=== PATIENT | male | born 1950 | race Caucasian/White ===

== ENCOUNTER 2022-05-12 11:24 | Emergency (ER) | payer MEDICARE, OTHER ==
--- NOTE | 2022-05-12 11:30 | ED General ---
General Chief Complaint: Medical Screening Exam Stated Complaint: DEHYDRATION Source of Information: Patient Exam Limitations: No Limitations History of Present Illness Date Seen by Provider: May 12, 2022 Time Seen by Provider: 11:20 Initial Comments 71-year-old man presents from home via EMS. He was reportedly in his home when the lady who comes to clean for him on Tuesdays came over. She reportedly found the patient in a chair and his was in the home as well but was . It is unclear exactly when his however his neighbor who helps him felt that he could not take care of himself anymore. She called the police and paramedics. On their arrival police stated that they could put him in protective custody or they can take him to the hospital for "emergency mcc placement." On arrival the patient has no specific complaints. He is unable to provide any past medical surgical or social history. He states he does not know what happened to his . He denies any fevers chills nausea vomiting. Chest pain cough abdominal pain, change in bowel or bladder habits. He does endorse left shoulder pain which he b states is chronic. he does tell me he is typically ambulatory with a walker. Allergies and Home Medications Allergies Coded Allergies: codeine (Verified Allergy, Unknown, 05/12/22) lisinopril (Verified Allergy, Unknown, 05/12/22) morphine (Verified Allergy, Unknown, 05/12/22) Patient Home Medication List Home Medication List Reviewed: Yes Review of Systems Review of Systems Constitutional: no symptoms reported EENTM: no symptoms reported Respiratory: no symptoms reported Cardiovascular: no symptoms reported Gastrointestinal: no symptoms reported Genitourinary: no symptoms reported Musculoskeletal: joint pain Skin: no symptoms reported Psychiatric/Neurological: No Symptoms Reported Hematologic/Lymphatic: No Symptoms Reported Immunological/Allergic: no symptoms reported Past Aqusjjg-Meiyyd-Byhair Hx Past Medical History Surgery/Hospitalization HX: Unable to obtain social past medical, surgical or family history Physical Exam Vital Signs Vital Signs - First Documented 05/12/22 11:27 Temp 36.5 Pulse 62 Resp 16 B/P (MAP) 135/66 (89) Pulse Ox 96 O2 Delivery Room Air Capillary Refill : Height, Weight, BMI Height: '" Weight: lbs. oz. kg; BMI Method: General Appearance: No Apparent Distress, Cachetic HEENT: PERRL/EOMI, Normal ENT Inspection, Pharynx Normal Neck: Full Range of Motion, Normal Inspection, Non Tender, Supple Respiratory: Chest Non Tender, Lungs Clear, Normal Breath Sounds, No Accessory Muscle Use, No Respiratory Distress Cardiovascular: Regular Rate, Rhythm, No Murmur, Normal Peripheral Pulses Gastrointestinal: Normal Bowel Sounds, No Organomegaly, Non Tender, Soft Extremity: Normal Capillary Refill, Normal Inspection, Normal Range of Motion, Non Tender, No Calf Tenderness Neurologic/Psychiatric: Alert, Oriented x3, No Motor/Sensory Deficits, Normal Mood/Affect Skin: Normal Color, Warm/Dry Progress/Results/Core Measures Suspected Sepsis SIRS Temperature: Pulse: Respiratory Rate: Laboratory Tests 05/12/22 11:27: White Blood Count 9.3 Blood Pressure / Mean: Laboratory Tests 05/12/22 11:27: Creatinine 1.89H, Platelet Count 323, Total Bilirubin 0.2 Results/Orders Lab Results Laboratory Tests Test 05/12/22 11:27 Range/Units White Blood Count 9.3 4.3-11.0 10^3/uL Red Blood Count 3.85 L 4.30-5.52 10^6/uL Hemoglobin 11.6 L 13.3-17.7 g/dL Hematocrit 36 L 40-54 % Mean Corpuscular Volume 93 80-99 fL Mean Corpuscular Hemoglobin 30 25-34 pg Mean Corpuscular Hemoglobin Concent 33 32-36 g/dL Red Cell Distribution Width 15.2 H 10.0-14.5 % Platelet Count 323 130-400 10^3/uL Mean Platelet Volume 9.5 9.0-12.2 fL Immature Granulocyte % (Auto) 0 % Neutrophils (%) (Auto) 79 H 42-75 % Lymphocytes (%) (Auto) 11 L 12-44 % Monocytes (%) (Auto) 9 0-12 % Eosinophils (%) (Auto) 1 0-10 % Basophils (%) (Auto) 0 0-10 % Neutrophils # (Auto) 7.3 1.8-7.8 10^3/uL Lymphocytes # (Auto) 1.0 1.0-4.0 10^3/uL Monocytes # (Auto) 0.9 0.0-1.0 10^3/uL Eosinophils # (Auto) 0.1 0.0-0.3 10^3/uL Basophils # (Auto) 0.0 0.0-0.1 10^3/uL Immature Granulocyte # (Auto) 0.0 0.0-0.1 10^3/uL Sodium Level 139 135-145 MMOL/L Potassium Level 4.2 3.6-5.0 MMOL/L Chloride Level 105 98-107 MMOL/L Carbon Dioxide Level 23 21-32 MMOL/L Anion Gap 11 5-14 MMOL/L Blood Urea Nitrogen 47 H 7-18 MG/DL Creatinine 1.89 H 0.60-1.30 MG/DL Estimat Glomerular Filtration Rate 38 BUN/Creatinine Ratio 25 Glucose Level 145 H 70-105 MG/DL Calcium Level 9.3 8.5-10.1 MG/DL Corrected Calcium 9.5 8.5-10.1 MG/DL Total Bilirubin 0.2 0.1-1.0 MG/DL Aspartate Amino Transf (AST/SGOT) 11 5-34 U/L Alanine Aminotransferase (ALT/SGPT) 10 0-55 U/L Alkaline Phosphatase 112 40-136 U/L Total Protein 6.6 6.4-8.2 GM/DL Albumin 3.8 3.2-4.5 GM/DL My Orders Orders - FORREST FRAZIER DO Cbc With Automated Diff (05/12/22 11:26) Comprehensive Metabolic Panel (05/12/22 11:26) Lactated Ringers (Lr 1000 Ml Iv Solution (05/12/22 12:30) Vital Signs/I&O 05/12/22 11:27 Temp 36.5 Pulse 62 Resp 16 B/P (MAP) 135/66 (89) Pulse Ox 96 O2 Delivery Room Air Capillary Refill : Departure Communication (Admissions) Patient is hemodynamically stable. Mildly elevated BUN and creatinine, given IV fluids for this. His son has been working with the nursing facility locally. He has Medicare and [employer]. This does not qualify him financially for placement. Nursing facility reportedly tried to work with the son on finances to see if he would qualify and he hung up on them and would not call back thereafter. We called the son and advised that he did not have a reason to admit the patient medically and he states he will be up to pick him up later. The patient is hemodynamically stable no indication for admission at this time Impression Primary Impression: Encounter for medical screening examination Disposition: HOME, SELF-CARE Condition: Stable Departure-Patient Inst. Patient Instructions: NO INSTRUCTIONS GIVEN Add. Discharge Instructions: No emergent medical conditions are identified. Please try to get him qualified for Medicaid if you desire mcc placement. Return to the emergency department for any severe concerns. All discharge instructions reviewed with patient and/or family. Voiced understanding. FORREST FRAZIER DO May 12, 2022 11:30
[2022-05-12 11:44] LABS: BASOPHILS % (AUTO) 0 % (0-10); EOSINOPHILS # (AUTO) 0.1 10^3/uL (0.0-0.3); EOSINOPHILS % (AUTO) 1 % (0-10); HEMATOCRIT 36 % (40-54); HEMOGLOBIN 11.6 g/dL (13.3-17.7); LYMPHOCYTES % (AUTO) 11 % (12-44); MEAN CORPUSCULAR HEMOGLOBIN 30 pg (25-34); MEAN CORPUSCULAR HGB CONC 33 g/dL (32-36); MEAN CORPUSCULAR VOLUME 93 fL (80-99); MEAN PLATELET VOLUME 9.5 fL (9.0-12.2); MONOCYTES # (AUTO) 0.9 10^3/uL (0.0-1.0); MONOCYTES % (AUTO) 9 % (0-12); NEUTROPHILS # (AUTO) 7.3 10^3/uL (1.8-7.8); NEUTROPHILS % (AUTO) 79 % (42-75); PLATELET COUNT 323 10^3/uL (130-400); WHITE BLOOD COUNT 9.3 10^3/uL (4.3-11.0)
[2022-05-12 12:03] LABS: POTASSIUM 4.2 MMOL/L (3.6-5.0)
[2022-05-12 12:04] LABS: ALBUMIN 3.8 GM/DL (3.2-4.5); BILIRUBIN,TOTAL 0.2 MG/DL (0.1-1.0); CALCIUM 9.3 MG/DL (8.5-10.1); CREATININE SERUM 1.89 MG/DL (0.60-1.30); TOTAL PROTEIN 6.6 GM/DL (6.4-8.2)
[2022-05-12] MEDS ORDERED: LACTATED RINGERS 1,000 ML IV SCH (12:30)
[2022-05-12 14:38] VITALS: BP 135/66
== END 2022-05-12 15:45 | disposition home or self-care (01) ==
LOC: ER FS 11:26
DX: Z00.00 Encounter for general adult medical examination without abnormal findings (principal)
CPT/HCPCS: 36415; 80053; 85025

== ENCOUNTER 2022-05-15 16:48 | Emergency (ER) | payer MEDICARE, OTHER ==
[2022-05-15] MEDS ORDERED: TRIM/SULFAMETH 160/800 (SEPTRA DS) TAB PO ONE (18:15)
[2022-05-15] MEDS ORDERED: CEPHALEXIN 250 MG (KEFLEX) CAP PO ONE (18:15)
[2022-05-15] MEDS ORDERED: SULF1TAB38 PO (18:16)
[2022-05-15] MEDS ORDERED: CEFD300C3 PO (18:16)
--- NOTE | 2022-05-15 18:17 | ED General ---
General Chief Complaint: Skin/Wound Problems Stated Complaint: WOUND ON R LOWER LEG Nursing Triage Note: Patient presents to the ED with c/o wound to right lower leg. Patient reports he dropped a cast iron joe on his leg a couple weeks ago. States the wound started leaking clear fluid on Wednesday. Small area to right foot open and blistered around wound. Source of Information: Patient Exam Limitations: No Limitations (BALA LANGLEY MD) History of Present Illness Date Seen by Provider: May 15, 2022 Initial Comments Based on description of the history, it appears patient likely had 1/3 degree burn on the right anterior lower leg. This area likely became infected with abscess under the necrotic tissue. Patient describes an episode in which she was scratching at the wound and it ruptured open splattering blood and pus. There is no purulent drainage now. There is surrounding erythema associated with this wound and a blister on the right lateral dorsal foot. (BALA LANGLEY MD) Time Seen by Provider: 18:00 Initial Comments This is a 71yo M who presents for a wound to the right lower leg. Pt dropped a hot eritrean oven on his right leg approximately 2 weeks ago. The wound initially leaked clear fluid but then progressed to a blister then an open wound. Patient has noticed the necrotic area and it "shedding" about 1 week ago. Pmhx includes HTN as well as peripheral neuropathy and neurogenic bladder due to L1 injury. Denies pmhx of diabetes. No other reported symptoms. Patient's recently and dog ran away. Location Injury Occurred: right leg Timing/Duration: Other (2 weeks ago) Severity: Mild Associated Systoms: Denies Symptoms (JOSÉ MIGUEL AARON) Allergies and Home Medications Allergies Coded Allergies: codeine (Verified Allergy, Unknown, 05/12/22) lisinopril (Verified Allergy, Unknown, 05/12/22) morphine (Verified Allergy, Unknown, 05/12/22) Patient Home Medication List Home Medication List Reviewed: Yes (JOSÉ MIGUEL AARON) Cefdinir (Cefdinir) 300 Mg Capsule, 300 MG PO BID Prescribed by: BALA CORREIA on 05/15/221815 Sulfamethoxazole/Trimethoprim (Bactrim Ds Tablet) 1 Each Tablet, 1 EACH PO BID Prescribed by: BALA CORREIA on 05/15/221815 Review of Systems Review of Systems Constitutional: no symptoms reported EENTM: no symptoms reported Respiratory: no symptoms reported Cardiovascular: no symptoms reported Genitourinary: no symptoms reported Musculoskeletal: no symptoms reported Skin: other (Wound on right leg) Psychiatric/Neurological: Depressed ( and dog ran away recently) (JOSÉ MIGUEL AARON) Past Grrfwkn-Wkftok-Mtwmca Hx Patient Social History Tobacco Use?: No Smoking Status: Current Everyday Smoker Use of E-Cig and/or Vaping dev: Yes E-Cig or Vaping type used: Nicotine Use of E-Cig and/or Vaping Jose: Current Everyday User Substance use?: No Alcohol Use?: Yes Alcohol Frequency: Once in a while Pt feels they are or have been: No (BALA LANGLEY MD) Immunizations Up To Date First/Initial COVID19 Vaccinat: Yes (BALA LANGLEY MD) Past Medical History Surgery/Hospitalization HX: Osteoporosis; HTN; Fx clavical. Bilateral shoulder replacement; Left TKR (BALA LANGLEY MD) Physical Exam Vital Signs Vital Signs - First Documented 05/15/22 17:09 Temp 37.1 Pulse 87 Resp 16 B/P (MAP) 148/89 (108) Pulse Ox 96 O2 Delivery Room Air (JOSÉ MIGUEL AARON) Vital Signs Capillary Refill : Less Than 3 Seconds (BALA LANGLEY MD) Height, Weight, BMI Height: '" Weight: lbs. oz. kg; BMI Method: (BALA LANGLEY MD) General Appearance: No Apparent Distress, WD/WN Respiratory: Lungs Clear, Normal Breath Sounds, No Accessory Muscle Use, No Respiratory Distress Cardiovascular: Regular Rate, Rhythm, No Murmur, Normal Peripheral Pulses (distal pedal pulse palpable but faint.) Extremity: Normal Capillary Refill, Other (Right leg 2cm x 3cm open wound at distal 2/3rds of anterolateral leg with mixed areas of necosis, no granulated tissue. Right lower extremity erythema and cellulitis from foot to distal 1/3 of leg. Superficial abrasions (<1cm) at distal 1/3 and middle of anterior leg. B/l distal pedal pulse palpable but faint.) Neurologic/Psychiatric: Alert, Oriented x3, No Motor/Sensory Deficits, Depressed Affect (Normal Grief due to 's passing and dog running away recently) (JOSÉ MIGUEL AARON) Progress/Results/Core Measures Suspected Sepsis SIRS Temperature: Pulse: 87 Respiratory Rate: 16 Blood Pressure 148 /89 Mean: 108 (BALA LANGLEY MD) Results/Orders Vital Signs/I&O 05/15/22 17:09 Temp 37.1 Pulse 87 Resp 16 B/P (MAP) 148/89 (108) Pulse Ox 96 O2 Delivery Room Air (JOSÉ MIGUEL AARNO) Vital Signs/I&O Capillary Refill : Less Than 3 Seconds (BALA LANGLEY MD) Blood Pressure Mean: 108 Progress Note : Progress Note Patient was interviewed and examined by me personally along with MS 4. He was not septic appearing. There was concern about infection associated with his wound. He was started on antibiotics with Bactrim and Keflex in the emergency room. Prescriptions for cefdinir and Bactrim were provided. He is being referred to wound care. Wounds were dressed by nursing staff. See discharge instructions for further discussion. (BALA LANGLEY MD) Departure Impression Primary Impression: Wound of right lower extremity Qualified Codes: S81.801A - Unspecified open wound, right lower leg, initial encounter Additional Impression: Cellulitis of right lower extremity Disposition: 01 HOME, SELF-CARE Condition: Improved Departure-Patient Inst. Decision time for Depature: 18:14 (BALA LANGLEY MD) Referrals: BREE YIN APRN (PCP) Primary Care Physician [facility] [place] (Family) Primary Care Physician VICKY GUTIERREZ MD Patient Instructions: Cellulitis (Skin Infection), Adult ED Add. Discharge Instructions: Complete your antibiotics as prescribed. Apply a light gauze dressing over the wound and change daily or more often if needed. Use nonstick dressing if the wound is still weeping. Complete your antibiotics as prescribed. Contact the wound care on Wednesday morning to schedule an appointment. Wound care orders phone number is [phone]. Return to care if you have worsening symptoms despite following these instructions. All discharge instructions reviewed with patient and/or family. Voiced understanding. Scripts Cefdinir (Cefdinir) 300 Mg Capsule 300 MG PO BID, #14 CAP 0 Refills Prov: BALA LANGLEY MD 05/15/22 Sulfamethoxazole/Trimethoprim (Bactrim Ds Tablet) 1 Each Tablet 1 EACH PO BID, #14 TAB Prov: BALA LANGLEY MD 05/15/22 Medical Student Attestation and Attending Note: I have personally interviewed and examined this patient along with José Miguel alas, MS 4. I have reviewed student documentation including history, physical, and assessments. I agree with the documentation except where otherwise noted. Exam: General: Alert, oriented, no acute distress, well developed HEENT: Normocephalic and atraumatic Heart: Regular rate and rhythm without murmur Lungs: Clear to auscultation bilaterally with normal effort Extremities: There is an open wound on the right anterior lower leg with serous drainage and surrounding erythema. It is not particularly tender. There is also a fluid-filled blister on the right dorsal lateral foot with surrounding erythema Neuropsych: Alert, oriented, no focal deficits Skin: As described above (BALA LANGLEY MD) Copy Copies To 1: [facility]/BALA VALERO MD May 15, 2022 18:17 JOSÉ MIGUEL AARON May 15, 2022 18:40
[2022-05-15 18:31] VITALS: BP 152/89
== END 2022-05-15 18:34 | disposition home or self-care (01) ==
LOC: EDUNIT# 16:48 → ER FS 16:49
DX: S81.801A Unspecified open wound, right lower leg, initial encounter (principal); L03.115 Cellulitis of right lower limb; F17.290 Nicotine dependence, other tobacco product, uncomplicated; W20.8XXA Other cause of strike by thrown, projected or falling object, initial encounter